=== PATIENT | male | born 1975 | race Caucasian/White ===

== ENCOUNTER → 2021-10-08 | Outpatient (CLI) | payer SELFPAY ==
[2021-10-08 11:34] LABS: Basophils # (A) 0.06 X 10*3/uL (0.00-0.10); Basophils % (A) 1.1 %; Eosinophils # (A) 0.19 X 10*3/uL (0.04-0.35); Eosinophils % (A) 3.3 %; HCT 46.1 % (39.6-50.0); HGB 15.7 g/dL (13.0-17.0); Immature Grans, Automated 0.5 %; Lymphocytes # (A) 2.42 X 10*3/uL (0.90-5.00); Lymphocytes % (A) 42.5 %; MCH 30.7 pg (27.0-32.0); MCHC 34.1 g/dL (32.0-37.0); Mean Platelet Volume 10.6 fL (9.5-12.2); Monocytes # (A) 0.51 X 10*3/uL (0.20-1.00); Monocytes % (A) 8.9 %; NRBC Per 100 WBC 0 /100 WBCS (0.0-0.0); Neutrophils # (A) 2.49 X 10*3/uL (1.80-7.70); Neutrophils % (A) 43.7 %; Platelet Count 329 X 10*3/uL (140-440); RBC 5.12 X 10*6/uL (4.40-5.60)
[2021-10-08 12:07] LABS: Anion Gap 11.1 mmol/L (10.00-18.00); Carbon Dioxide 26.9 mmol/L (20.0-27.5); Potassium 4.2 mmol/L (3.5-5.5)
== END | disposition home or self-care (01) ==
LOC: LABPAT 07:14
PROVIDERS: ATTEND Orthopaedic Surgery Hand Surgery
DX: Z01.812 Encounter for preprocedural laboratory examination (principal); S46.211A Strain of muscle, fascia and tendon of other parts of biceps, right arm, initial encounter; X58.XXXA Exposure to other specified factors, initial encounter
CPT/HCPCS: 36415; 80051; 85025

== ENCOUNTER → 2021-10-08 | Outpatient (CLI) | payer SELFPAY ==
--- NOTE | 2021-10-08 08:45 | MR ---
Right elbow MRI HISTORY: Elbow pain Multiplanar multisequence imaging obtained through the right elbow There is motion on exam. The biceps tendon is retracted, serpiginous in appearance, there is abnormal signal present at the le mary of the expected attachment, approximately 10 cm from the expected insertion. T2 bright signal is present along the course of the expected tendon consistent with edema, inflammatory change, musculote ndinous junction region shows probable edema, some fluid is present along the level of the distal por tion of the proximal upper extremity. Bone marrow signal is maintained. Minimal elbow joint effusion. Triceps tendon shows a normal insertion. Articular cartilage signal is maintained. Flexor and extens or tendons are intact, some fluid signal is present along the tendon origins, there may be some assoc iated tendinosis. IMPRESSION: Findings consistent with distal biceps tendon complete tear with retraction.
== END | disposition home or self-care (01) ==
LOC: RADMRIMAIN 06:11
PROVIDERS: ATTEND Orthopaedic Surgery Hand Surgery
DX: M25.521 Pain in right elbow (principal)

== ENCOUNTER 2021-10-13 12:02 | Day surgery (SDC) | payer SELFPAY ==
--- NOTE | 2021-10-11 13:41 | P.HPOR ---
History of Present Illness H&P Date: 10/11/21 Chief Complaint: Right distal biceps tendon rupture Subjective: This is a 46 year old male that presents today for initial evaluation regarding a right arm injury that occurred on 10/01/21. He states he was on a bar in a gym and trying to do a backflip on the bar and when he was coming down he felt a pop and had immediate pain and swelling in the right anterior elbow. He states prior to this he may have had some antecedent pain in the elbow but nothing significant. He denies any previous injury, denies any paresthesias and is right handed and self employed. Physical Examination: RUE: AIN/PIN/Radial/Ulnar/Median motor intact. Radial/Ulnar/Median SILT. 2+/4 Radial/Ulnar pulses palpated. 5/5 APB, 5/5 FDI. Negative Finkelsteins, negative CMC grind, negative Durkan's compression. Positive Hook test, bruising/swelling along anteromedial forearm/elbow. Pain with resisted supination. Imaging: X-Rays of the right elbow taken from previous office visit 1 day prior demonstrate no acute fracture/dislocation. Updated MRI results. MRI of right elbow demonstrates complete right distal biceps tendon rupture with over 10cm of retraction. Impression: 1.) Right distal biceps tendon rupture, acute. Plan: Diagnosis and treatment options were discussed with the patient. Due to his age, activity demands and occupation he would like to preserve as much strength as possible with this arm and I recommend surgical intervention. Risks and benefit of surgery including bleeding, infection, damage to surrounding tissue, need for further surgery, residual numbness were discussed and the patient wished to go forward with surgery. He is scheduled for a right distal biceps tendon repair with suture button fixation in the near future. -Mckinley Nava DO Orthopedic Hand/Upper Extremity Surgeon Past Medical History Past Medical History: No Reported History History of Any Multi-Drug Resistant Organisms: MRSA Date of last positivie culture/infection: 02/26/20 MDRO Source:: Right Arm Additional Past Surgical History / Comment(s): DENTAL AND GUM SURGERY Past Anesthesia/Blood Transfusion Reactions: Motion Sickness Past Psychological History: No Psychological Hx Reported Past Alcohol Use History: None Reported Additional Past Alcohol Use History / Comment(s): QUIT 03/2015 STARTED SMOKING AT 17 1PPD/ CHEWING TOBACCO DAILY Past Drug Use History: None Reported - Past Family History Father Family Medical History: Cancer Additional Family Medical History / Comment(s): LUNG CANCER Medications and Allergies Home Medications Medication Instructions Recorded Confirmed Type HYDROcodone/APAP 7.5-325MG [[place] 1 - 2 each PO Q6HR PRN #60 tab 06/03/15 Rx 7.5-325] Allergies Allergy/AdvReac Type Severity Reaction Status Date / Time cat dander Allergy Dyspnea Verified 06/02/15 09:32 Penicillins Allergy Rash/Hives Verified 06/02/15 09:32 Physical Examination Osteopathic Statement: *. No significant issues noted on an osteopathic structural exam other than those noted in the History and Physical/Consult.
[~2021-10-13 12:02] MED LIST: DEXAMETHASONE SOD PHOSPHATE 4 MG/ML 1 ML VIAL IV ONE; HYDROmorphone 0.5 MG/0.5 ML SYRINGE IVP PRN; LACTATED RINGERS 1,000 ML IV SCH; LIDOCAINE 1% (10MG/ML) FOR IV START INTRADERMA PRN; MIDAZOLAM 2 MG/2 ML VIAL IV PRN; ONDANSETRON 4 MG/2 ML VIAL IVP ONE
[2021-10-13] MEDS ORDERED: SCOPOLAMINE 1 MG/72 HR PATCH TRANSDERM ONE (12:48)
[2021-10-13] MEDS ORDERED: fentaNYL (PF) 50 MCG/ML 2 ML AMP IVP ONE (13:50)
[2021-10-13] MEDS ORDERED: MIDAZOLAM 2 MG/2 ML VIAL IVP ONE (13:50)
[2021-10-13] MEDS ORDERED: PROPOFOL 10 MG/ML 20 ML VIAL IV ONE (13:58)
[2021-10-13] MEDS ORDERED: MIDAZOLAM 2 MG/2 ML VIAL ONE (13:58)
[2021-10-13] MEDS ORDERED: ROPIVACAINE 5 MG/ML 30 ML VIAL ONE (13:58)
[2021-10-13] MEDS ORDERED: fentaNYL (PF) 50 MCG/ML 2 ML AMP ONE (13:58)
[2021-10-13] MEDS ORDERED: LIDOCAINE 2% INJ 20 MG/ML (2 ML VIAL) ONE (13:58)
[2021-10-13] MEDS ORDERED: LACTATED RINGERS 1,000 ML IV ONE (15:30)
--- NOTE | 2021-10-13 15:43 | P.ANPRN ---
Procedure Note - Anesthesia - Nerve Block Performed Right Supraclavicular Time Out Performed: Yes (13:48) Date of Procedure: 10/13/21 Procedure Start Time: 13:48 Procedure Stop Time: 13:57 Location of Patient: PreOp Indication: Acute Post-Operative Pain, Requested by Surgeon (Dr Nava) Sedation Type: Sedate with meaningful contact maintained Preparation: Sterile Prep Position: Supine Catheter: None Needle Types: Pajunk Needle Gauge: Other (see comment) (22g) Ultrasound used to visualize needle placement: No Ultrasound used to observe medication spread: No Injectate: 0.5% Ropivacaine (see comment for volume) (20cc) Blood Aspirated: No Pain Paresthesia on Injection Noted: No Resistance on Injection: Normal Image Stored and Saved: Yes Events: Uneventful and Well Tolerated
[2021-10-13 15:54] VITALS: TEMP 97
--- NOTE | 2021-10-13 15:58 | P.OP ---
Date of Procedure: 10/13/21 Preoperative Diagnosis: 1.) Right distal biceps tendon rupture Postoperative Diagnosis: 1.) Right distal biceps tendon rupture Procedure(s) Performed: 1.) Right distal biceps tendon repair with suture button Implants: Arthrex distal biceps suture button Anesthesia: ronald FAULKNER Surgeon: Mckinley Nava Medical Service Representative #1: Chadd Delgadillo Estimated Blood Loss (ml): 0 Pathology: none sent Condition: stable Disposition: PACU Description of Procedure: This is a 46 year old male with a history of a right distal biceps tendon rupture that occurred while working out in a gym. He presents today for right distal biceps tendon avulsion repair. Risks and benefits of surgery were discussed with the patient including bleeding, damage to surrounding tissue, infection, paresthesias, need for further surgery as well as risks of anesthesia including pulmonary embolism and even and the patient wished to proceed with surgical intervention. The patients was seen in the pre-operative area by myself. Consent and H&P were completed and updated. The correct extremity was marked in the pre-operative area by myself and all other questions were answered. Patient received an upper extremity nerve block by the department of anesthesia. He then was brought to the operating room by the department of anesthesia. He was transferred to the operative table and a rolling hand table was brought to the side of the operative extremity. The patient was then drifted off to sleep by the department of anesthesia. A nonsterile tourniquet was then applied to the operative extremity and the right upper extremity was then prepped and draped in normal sterile fashion. Pre-operative time out was performed indicating the correct patient, procedure and laterality. All in the room agreed. Pre-operative antibiotics were given prior to skin incision. The operative extremity was the exsanguinated with an esmarch bandage and the tourniquet was inflated to 250mmHg. 15 blade scalpel was used to make a 4cm transverse incision 3 cm distal to the anterior elbow antecubital fossa crease. Blunt dissection was then performed in subcutaneous tissues, retractors were placed taking care to not put excessive force laterally to avoid pressure on the LABCN. Seroma was identified and the distal end of the biceps tendon was identified just proximal to the bicipital grove with adhesions formed to the surrounding matthew and vascular structures which were carefully dissected, the end of the tendon was then grasped with an Leyla clamp. Edges were trimmed of degenerative tissue to create a more profiled distal tip. A number 2 looped fiberwire was then used to sequentially grasp the tendon starting 2.5cm proximal to the distal end. The last stitch was placed in a locking fashion. Tendon sizer was then utilized the distal tendon was able to fit through a 7mm hole. Attention was then brought back to the antecubital fossa and deeper dissection was taken down to the radial tuberosity. Tendon remnants were debrided carefully with rongeur. The forearm was then maximally supinated to reveal the bicipital tuberosity on the radius in order to move the PIN nerve as far radial as possible. A 3.2mm guide pin was then inserted bicortically into the radial tuberosity aimed 30 degrees ulnarly to avoid PIN damage. Correct placement was then confirmed on flouroscopy. A 8mm drill was then used to drill the near cortex only. The wound was then copiously irrigated. The free ends of the suture where then passed through the arthrex cortical button to engage the tension slide mechanism. Cortical button was placed into the button straightedge machine operator helper and inserted through the drill hole and deployed. Tension was then applied to snug the cortical button flush against the dorsal cortex. The free suture limbs were then tensioned to fully dock the tendon in the bone tunnel. A free needle was then used to pass one limb through the tendon and a knot was tied. Mini C arm was then used to confirm that the button had flipped and was lying flush against the cortex. The wound was then irrigated. Closure was performed with interrupted 4-0 monocryl suture followed by a running subcuticular suture. Exofin glue was then applied to the wound. 4x4s, webril and a posterior splint with the elbow in slight flexion was applied. The tourniquet was let down and the hand had immediate normal perfusion. The patient was then woken and transferred to PACU in stable condition. Chadd MILLS was present for the case and aided in assistance in hardware placement and protection of vital neurovascular structures. Mckinley Nava DO Orthopedic Hand/Upper Extremity Surgeon
[2021-10-13 16:56] VITALS: BP 116/75; PULSE 77; RESP 14
== END 2021-10-13 17:26 | disposition home or self-care (01) ==
LOC: OR 12:02
PROVIDERS: ATTEND Orthopaedic Surgery Hand Surgery
DX: S46.211A Strain of muscle, fascia and tendon of other parts of biceps, right arm, initial encounter (principal); X50.0XXA Overexertion from strenuous movement or load, initial encounter; F17.220 Nicotine dependence, chewing tobacco, uncomplicated; J45.909 Unspecified asthma, uncomplicated; Z86.14 Personal history of Methicillin resistant Staphylococcus aureus infection; Z79.899 Other long term (current) drug therapy; Z88.0 Allergy status to penicillin; Z98.890 Other specified postprocedural states; Z80.1 Family history of malignant neoplasm of trachea, bronchus and lung
CPT/HCPCS: 64415; 76942; 24341; C1713; J2250; J1100; J0690; J2405; J3010; J2795; J2704; J2001